=== PATIENT | male | born 1985 | race Caucasian/White ===

== ENCOUNTER 2025-03-23 22:45 | Inpatient (IN) | payer MEDICAID ==
[~2025-03-23] VITALS: Ht 160 cm; Wt 62.1 kg
[2025-03-23 22:52] VITALS: O2SAT 100
[2025-03-23] MEDS ORDERED: AZITHROMYCIN 500MG/250ML 250 ML IV ONE (23:15)
[2025-03-23] MEDS: SODIUM CHLORIDE 0.9% (SEPSIS BOLUS) IV ONE (23:34)
[2025-03-23] MEDS: CEFTRIAXONE 1GM/50ML 50 ML IV ONE (23:43)
[2025-03-23 23:56] LABS: BASOPHILS % 0.5 % (0.0-2.0); EOSINOPHILS % 0.9 % (0.0-5.0); HEMATOCRIT. 35.0 % (42.0-52.0); HEMOGLOBIN. 11.1 g/dL (14.0-18.0); LYMPHOCYTES % 50.3 % (20.0-50.0); MEAN PLATELET VOLUME 8.5 fl (7.4-10.4); MONOCYTES % 5.5 % (2.0-8.0); NEUTROPHILS % 42.8 % (40.0-76.0); PLATELET 328 x1000/uL (130-400); RED BLOOD CELL COUNT 4.16 mill/uL (4.7-6.1); RED CELL DISTRIBUTION WIDTH 16.7 % (11.6-14.6)
[2025-03-24 00:07] LABS: INR 1.0
[2025-03-24 00:13] LABS: CREATININE 0.7 mg/dL (0.6-1.3); TROPONIN I HIGH SENSITIVITY < 4 ng/L (3.0-53); UREA NITROGEN BLOOD 6 mg/dL (9-23)
[2025-03-24 00:15] LABS: ASPARTATE AMINOTRANSFERASE 26 IU/L (<34); BILIRUBIN DIRECT < 0.1 mg/dL (<=3.0); BILIRUBIN TOTAL 0.3 mg/dL (0.1-1.0); PROTEIN TOTAL 8.0 g/dL (6.0-8.3)
[2025-03-24] MEDS: AZITHROMYCIN 500MG/250ML 250 ML IV NR (00:42)
[2025-03-24 00:59] LABS: CLARITY URINE CLEAR (CLEAR); COLOR URINE YELLOW (YELLOW); GLUCOSE URINE NEGATIVE (NEGATIVE); KETONES URINE NEGATIVE (NEGATIVE); LEUKOCYTE ESTERASE URINE NEGATIVE (NEGATIVE); NITRITE URINE NEGATIVE (NEGATIVE); OCCULT BLOOD URINE NEGATIVE (NEGATIVE); PH URINE 5.5 (4.5-8.0); PROTEIN URINE NEGATIVE (NEGATIVE); SPECIFIC GRAVITY URINE 1.010 (1.005-1.030); UROBILINOGEN URINE 0.2 E.U./dL (0.2-1.0)
[2025-03-24 02:09] LABS: *AMPHETAMINES SCREEN URINE NEGATIVE (NEGATIVE); *BENZODIAZEPINES SCREEN URINE NEGATIVE (NEGATIVE)
[2025-03-24 02:10] LABS: *BARBITURATES SCREEN URINE NEGATIVE (NEGATIVE); *COCAINE SCREEN URINE NEGATIVE (NEGATIVE); CANNABINOID URINE SCREEN NEGATIVE (NEGATIVE); ECSTASY MDMA SCREEN URINE NEGATIVE (NEGATIVE); METHADONE URINE SCREEN NEGATIVE (NEGATIVE); OPIATES URINE SCREEN NEGATIVE (NEGATIVE); PHENCYCLIDINE URINE SCREEN NEGATIVE (NEGATIVE)
[2025-03-24 07:12] LABS: INFLUENZA TYPE A Presumptive Negative (Pres. Neg.)
[2025-03-24 07:13] LABS: INFLUENZA TYPE B Presumptive Negative (Pres. Neg.)
[2025-03-24 07:14] LABS: RESPIRATORY SYNCYTIAL VIRUS Not Detected (Not Detectd)
[2025-03-24 07:30] VITALS: BP 110/66; PULSE 81; RESP 19; TEMP 36.2; TEMP 36.2512; O2SAT 99
[2025-03-24 08:00] VITALS: BP 110/66; PULSE 81; RESP 19; TEMP 36.2; O2SAT 99
[2025-03-24] MEDS ORDERED: CLONIDINE 0.1MG TABLET PO PRN (09:30)
[2025-03-24] MEDS ORDERED: ACETAMINOPHEN 325MG TABLET PO PRN (09:30)
[2025-03-24] MEDS ORDERED: ONDANSETRON HCL 4MG/2ML INJ IV PRN (09:30)
[2025-03-24] MEDS ORDERED: LORAZEPAM 2MG/ML UD SYRINGE IV PRN (09:30)
[2025-03-24] MEDS ORDERED: DOCUSATE SODIUM 100MG CAPSULE PO PRN (09:30)
[2025-03-24] MEDS ORDERED: IPRATROPIUM/ALBUTEROL 0.5-3(2.5)MG/3ML NEB HHN PRN (09:30)
[2025-03-24] MEDS: PANTOPRAZOLE SODIUM 40 MG/VIAL IV SCH (11:00)
[2025-03-24] MEDS: DEXT 5%/0.45% NACL 1000ML 1,000 ML IV SCH (11:00)
[2025-03-24] MEDS: ENOXAPARIN 40MG/0.4ML SYR SUBCUT SCH (11:00)
[2025-03-24] MEDS: ACETAMINOPHEN 325MG TABLET PO PRN (11:35)
[2025-03-24] MEDS: FOLIC ACID 1 MG, THIAMINE HCL 100 MG, MVI, ADULT NO.1 10 ML in DEXTROSE 5% WATER 1,000 ML IV ONE (11:59)
[2025-03-24 12:00] VITALS: BP_SYST 100; BP_SYST 127; BP_DIAS 54; BP_DIAS 83; PULSE 103; PULSE 74; RESP 18; TEMP 36.3; TEMP 37.2; O2SAT 100; O2SAT 96
[2025-03-24] MEDS: CHLORDIAZEPOXIDE 25MG CAPSULE PO SCH (14:00)
[2025-03-24 16:00] VITALS: BP 117/67; PULSE 73; RESP 18; TEMP 37.5; O2SAT 97
[2025-03-24 20:00] VITALS: BP 110/72; PULSE 65; RESP 18; TEMP 36.6; O2SAT 98
[2025-03-25] VITALS: BP 103/66; PULSE 61; RESP 18; TEMP 36; O2SAT 97
[2025-03-25 04:00] VITALS: BP 115/66; PULSE 80; RESP 18; TEMP 36.2; O2SAT 99
[2025-03-25 07:18] LABS: INR 1.1
[2025-03-25 07:25] LABS: HEMATOCRIT. 33.8 % (42.0-52.0); HEMOGLOBIN. 10.7 g/dL (14.0-18.0); RED BLOOD CELL COUNT 4.01 mill/uL (4.7-6.1); RED CELL DISTRIBUTION WIDTH 17.1 % (11.6-14.6)
[2025-03-25 07:26] LABS: BILIRUBIN TOTAL 0.6 mg/dL (0.1-1.0); CREATININE 0.6 mg/dL (0.6-1.3)
[2025-03-25 07:27] LABS: ASPARTATE AMINOTRANSFERASE 22 IU/L (<34); PROTEIN TOTAL 7.4 g/dL (6.0-8.3); UREA NITROGEN BLOOD 6 mg/dL (9-23)
[2025-03-25 07:29] LABS: BILIRUBIN DIRECT 0.2 mg/dL (<=3.0); PHOSPHORUS 4.0 mg/dL (2.5-4.9)
[2025-03-25 08:00] VITALS: BP 110/64; PULSE 79; RESP 20; TEMP 36.4; O2SAT 98
[2025-03-25] MEDS: FOLIC ACID 1MG TABLET PO SCH (10:13)
[2025-03-25] MEDS: MULTIVITAMINS,THER W-MINERALS TABLET PO SCH (10:13)
[2025-03-25] MEDS: THIAMINE HCL 100MG TABLET PO SCH (10:13)
[2025-03-25 12:00] VITALS: BP 110/70; PULSE 70; RESP 18; TEMP 36.6; O2SAT 98
[2025-03-25 12:42] LABS: FOLIC ACID (FOLATE) SERUM > 20.00 ng/mL (>5.38)
[2025-03-25 12:45] LABS: VITAMIN B12 SERUM 710 pg/mL (211-911)
[2025-03-25 16:00] VITALS: BP 110/60; PULSE 91; RESP 18; TEMP 35.8; O2SAT 98
[2025-03-25 20:00] VITALS: BP 112/72; PULSE 100; RESP 20; TEMP 37; O2SAT 99
[2025-03-25 21:14] LABS: PLATELET 254 x1000/uL (130-400)
[2025-03-25 21:15] LABS: MEAN PLATELET VOLUME 9.4 fl (7.4-10.4)
[2025-03-25 21:18] LABS: LYMPHOCYTES % MANUAL 36.0 % (20.0-50.0); MONOCYTES % MANUAL 14.0 % (2.0-8.0); NEUTROPHILS % MANUAL 50.0 % (45.0-75.0); PLATELET ESTIMATE NORMAL
[2025-03-26] VITALS: BP 99/59; PULSE 82; RESP 18; TEMP 37; O2SAT 97
[2025-03-26 04:00] VITALS: BP 103/57; PULSE 71; RESP 18; TEMP 36.9; O2SAT 97
[2025-03-26 08:00] VITALS: BP 97/60; PULSE 63; RESP 18; TEMP 36.5; O2SAT 97
[2025-03-26 12:00] VITALS: BP 105/71; PULSE 71; RESP 20; TEMP 36.5; O2SAT 97
[2025-03-26 16:00] VITALS: BP 94/59; PULSE 73; RESP 18; TEMP 36.5; O2SAT 97
[2025-03-26 20:00] VITALS: BP 102/70; PULSE 68; RESP 18; TEMP 36.5; O2SAT 99
[2025-03-27] VITALS: BP 96/61; PULSE 68; RESP 17; TEMP 36.4; O2SAT 99
[2025-03-27 04:00] VITALS: BP 98/58; PULSE 63; RESP 18; TEMP 36.4; O2SAT 99
[2025-03-27 08:00] VITALS: BP 109/71; PULSE 63; RESP 17; TEMP 35.7; O2SAT 97
[2025-03-27 12:00] VITALS: BP 101/66; PULSE 79; RESP 18; TEMP 36.5; O2SAT 100
[2025-03-27 12:27] VITALS: BP 102/63; PULSE 79; TEMP 97.7
== END 2025-03-27 14:08 | disposition home or self-care (01) | DRG 425 ==
LOC: ER 22:45 → 8WST 03-24 00:54 → EDBEDREQDT 03-24 01:05 → EDBEDREQTM 03-24 01:05 → EDBEDREQ 03-24 01:05 → ENRESERV 03-24 07:04
PROVIDERS: ADMIT Internal Medicine; ATTEND Internal Medicine
DX: E87.20 Acidosis, unspecified (principal); Z59.00 Homelessness unspecified; F10.129 Alcohol abuse with intoxication, unspecified; D64.9 Anemia, unspecified; R11.2 Nausea with vomiting, unspecified; Y90.8 Blood alcohol level of 240 mg/100 ml or more; R19.7 Diarrhea, unspecified
CPT/HCPCS: 36415; 71045; 74176; 80048; 80076; 80305; 80320; 81003; 82550; 82607; 82728; 82746; 83540; 83550; 83605; 83735; 83880; 84100; 84145; 84484; 85025; 87015; 87045; 87420; 87426; 87427; 87449; 87493; 87804; 89055; 93005; 96365; 96368; 99291; J0456; J0696; J1650; J2470; J3411; J3490; J7030; J7070; G0480